=== PATIENT | female | born 1955 | race Caucasian/White ===

== ENCOUNTER 2021-04-24 12:59 | Outpatient (CLI) | payer OTHER, SELFPAY ==
--- NOTE | 2021-04-24 13:20 | PC.NURSE ---
PT to room 210 amb. A&Ox3. Antibody infusion explained. Pt signed consent. Has no questions. Oriented to room. Call coto in reach. Reminded to call with needs.
[2021-04-24] MEDS: FAMOTIDINE 20 MG TABLET PO (13:37)
[2021-04-24] MEDS: ACETAMINOPHEN 325 MG TABLET 650 MG PO (13:37)
[2021-04-24] MEDS: diphenhydrAMINE HCl CAP 25 MG CAPSULE PO (13:37)
[2021-04-24 13:40] VITALS: BP 122/66; PULSE 69; RESP 20; TEMP 37; O2SAT 96
--- NOTE | 2021-04-24 14:47 | PC.NURSE ---
Pt has no complaints. Discharged to home amb per self.
== END 2021-04-24 13:00 | disposition home or self-care (01) ==
PROVIDERS: PCP Internal Medicine; Visit Provider Internal Medicine
DX: U07.1 COVID-19 (principal)
CPT/HCPCS: A9270; M0245; Q0245